=== PATIENT | male | born 1995 | race African-American/Black ===

== ENCOUNTER 2017-02-07 21:27 | Emergency (ER) | payer SELFPAY ==
[~2017-02-07] VITALS: Ht 170.2 cm; Wt 79.4 kg
[2017-02-07 21:59] VITALS: BP 120/72
--- NOTE | 2017-02-07 22:15 | PHYS DOC ---
Past Medical History Past Medical History: Depression, HIV, Other Additional Past Medical Histor: HEPATITIS, GASTRITIS Past Surgical History: Cholecystectomy, Other Additional Past Surgical Histo: LIVER BX Alcohol Use: None Drug Use: None Adult General Chief Complaint Chief Complaint: SKIN RASH/ABSCESS [facility] HPI Patient is a 21 year old male presents emergency department stating that he is here on his left wrist that appear to have some clear drainage coming from the site. He states that the area has become red warm and tender to touch and is causing some numbness and tingling into his left hand. He states that this occurred within the last 2 days. He states his tetanus immunization is up-to- date within the last 2 years. He denies any fever, chills or any nausea or vomiting. Review of Systems Review of Systems Constitutional: Denies fever or chills [] Eyes: Denies change in visual acuity, redness, or eye pain [] HENT: Denies nasal congestion or sore throat [] Respiratory: Denies cough or shortness of breath [] Cardiovascular: No additional information not addressed in HPI [] GI: Denies abdominal pain, nausea, vomiting, bloody stools or diarrhea [] : Denies dysuria or hematuria [] Musculoskeletal: Denies back pain or joint pain [] Integument: Denies rash or skin lesions. Area to left wrist with redness, clear drainage and tenderness Neurologic: Denies headache, focal weakness or sensory changes [] Current Medications Current Medications Current Medications Medications (Trade) Dose Ordered Sig/Tressa Start Time Stop Time Status Last Admin Dose Admin Lidocaine/Sodium Bicarbonate (Buffered Lidocaine 1%) 20 ml 1X ONCE 02/07/17 22:30 02/07/17 22:31 DC Allergies Allergies Allergies Coded Allergies Type Severity Reaction Last Updated Verified oxycodone Allergy Severe SI 02/07/17 Yes Physical Exam Physical Exam Constitutional: Well developed, well nourished, no acute distress, non-toxic appearance. [] HENT: Normocephalic, atraumatic, bilateral external ears normal, oropharynx moist, no oral exudates, nose normal. [] Eyes: PERRLA, EOMI, conjunctiva normal, no discharge. [] Neck: Normal range of motion, no tenderness, supple, no stridor. [] Cardiovascular:Heart rate regular rhythm, no murmur [] Lungs & Thorax: Bilateral breath sounds clear to auscultation [] Skin: Warm, dry, no erythema, no rash. Left wrist with redness, tenderness and soft indurated area. Back: No tenderness Extremities: No tenderness, no cyanosis, no clubbing, ROM intact, no edema. [] Neurologic: Alert and oriented X 3, normal motor function, normal sensory function, no focal deficits noted. [] Psychologic: Affect normal, judgement normal, mood normal. [] Current Patient Data Vital Signs Vital Signs Date Time Temp Pulse Resp B/P Pulse Ox O2 Delivery O2 Flow Rate FiO2 02/07/17 21:59 98.2 98 18 100 Room Air 98.2 EKG EKG [] Radiology/Procedures Radiology/Procedures [] Course & Med Decision Making Course & Med Decision Making Pertinent Labs and Imaging studies reviewed. (See chart for details) Struck to the patient to keep the area clean and dry and apply warm moist packs to the area 4 times a day for 20 minutes at a time. Recommended plenty of fluids medication as prescribed. Tylenol or ibuprofen for pain and discomfort. Signs and symptoms to return back to emergency department was provided. Recommended following up to primary care physician returned the emergency department in 3 days if the area does not appear to be improving. Patient agreed with discharge instructions treatment regimens and follow-up recommendations. [] Dragon Disclaimer Dragon Disclaimer This electronic medical record was generated, in whole or in part, using a voice recognition dictation system. Departure Departure Impression: Primary Impression: Cellulitis and abscess of unspecified site Disposition: HOME, SELF-CARE Condition: STABLE Referrals: TUSHAR CHAIDEZ MD (PCP) Patient Instructions: Abscess, [id number], Cellulitis, [id number] Additional Instructions: Activity as tolerated. Tylenol or ibuprofen for pain and discomfort. Medication as prescribed. Warm moist packs to the area 4 times a day 20 minutes at a time. Follow-up with primary care physician in the next 3-5 days. Return back to emergency department signs and symptoms become worse. Scripts Sulfamethoxazole/Trimethoprim (Bactrim Ds Tablet)1 Each Tablet1 Tab PO BID #20 TAB Prov:TUAN PAYNE LEYDI 02/07/17 Incision and Drainage Incision and Drainage : Blade Size: 11 I & D Procedure: betadine prep sterile drapes applied Progress Site was cleaned with Betadine. 1% lidocaine buffered was injected into the area with 3 mL. Site was incised with # 11 blade. Minimal amount of drainage noted from the site. Sterile dressing applied by nursing staff. TUAN PAYNE APRN Feb 07, 2017 22:15
[2017-02-07] MEDS ORDERED: LIDOCAINE 1% / SOD BICARB 8.4% 20 ML VIAL. IJ ONE (22:30)
[2017-02-07] MEDS ORDERED: SULF1TAB24 PO (22:39)
== END 2017-02-07 22:45 | disposition home or self-care (01) ==
LOC: ER 21:27
DX: L03.114 Cellulitis of left upper limb (principal); Z88.5 Allergy status to narcotic agent
CPT/HCPCS: 10060; 99283-25